=== PATIENT | male | born 1965 | race Two or more races ===

== ENCOUNTER 2017-07-23 22:24 | Emergency (ER) | payer MEDICAID, OTHER ==
[~2017-07-23] VITALS: Ht 182.9 cm; Wt 75.7 kg
[2017-07-23] MEDS ORDERED: LEVETIRACETAM (500MG) 500 MG/5 ML VIAL IV ONE (22:55)
[2017-07-23 23:00] LABS: BASOPHILS % (AUTO) 0.2 % (0.0-2.0); EOSINOPHILS % (AUTO) 3.1 % (0.0-6.0); HEMATOCRIT 37 % (39-51); HEMOGLOBIN 12.1 g/dL (13.5-17.5); LYMPHOCYTES # (AUTO) 2.5 /CMM (0.8-4.8); LYMPHOCYTES % (AUTO) 32.3 % (20.0-44.0); MEAN CORPUSCULAR HGB CONC 33 g/dl (31.0-36.0); MEAN CORPUSCULAR VOLUME 88 fL (80-96); MONOCYTES # (AUTO) 0.8 /CMM (0.1-1.30); MONOCYTES % (AUTO) 9.8 % (2.0-12.0); NEUTROPHILS # (AUTO) 4.3 /CMM (1.8-8.9); NEUTROPHILS % (AUTO) 54.6 % (43.0-81.0); PLATELET COUNT (AUTO) 246 /CMM (150-450); RDW COEFFICIENT OF VARIATION 14.1 (11.5-15.0); RED BLOOD CELL COUNT(AUTO) 4.14 MIL/uL (4.5-6.0); WHITE BLOOD COUNT (AUTO) 7.9 K/uL (4.3-11.0)
[2017-07-23] MEDS ORDERED: LEVETIRACETAM (500MG) 500 MG in IV NS 0.9% 100 ML IV ONE (23:00)
--- NOTE | 2017-07-23 23:01 | NUR ---
PT LEFT FOR CT VIA [facility]
[2017-07-23 23:08] LABS: CALCIUM, SERUM 9.3 mg/dL (8.5-10.1); CREATININE 1.7 mg/dL (0.6-1.3); POTASSIUM 3.8 mmol/L (3.5-5.1)
[2017-07-23 23:21] LABS: INR 0.96 (0.87-1.13)
[2017-07-23] MEDS ORDERED: METO-295 PO (23:44)
[2017-07-23] MEDS ORDERED: BISO5TAB2 PO (23:44)
[2017-07-23] MEDS ORDERED: METF-440 PO (23:44)
[2017-07-23] MEDS ORDERED: ATOR40TA PO (23:44)
[2017-07-23] MEDS ORDERED: ERGO400T7 PO (23:44)
[2017-07-23] MEDS ORDERED: LISI5TAB45 PO (23:44)
[2017-07-23] MEDS ORDERED: ASPI-1152 PO (23:44)
[2017-07-23] MEDS ORDERED: SPIR25TA6 PO (23:44)
[2017-07-24 01:20] VITALS: BP 107/69
== END 2017-07-24 01:21 | disposition home or self-care (01) ==
LOC: ER 22:27
DX: G40.909 Epilepsy, unspecified, not intractable, without status epilepticus (principal); N28.9 Disorder of kidney and ureter, unspecified; D64.9 Anemia, unspecified; E11.9 Type 2 diabetes mellitus without complications; E78.5 Hyperlipidemia, unspecified; G93.89 Other specified disorders of brain; I10 Essential (primary) hypertension; I25.10 Atherosclerotic heart disease of native coronary artery without angina pectoris; R79.1 Abnormal coagulation profile; Z79.82 Long term (current) use of aspirin; Z86.73 Personal history of transient ischemic attack (TIA), and cerebral infarction without residual deficits; Z95.1 Presence of aortocoronary bypass graft
CPT/HCPCS: 36415; 70450-TC; 71045-TC; 80048-TC; 82962-TC; 85025-TC; 85730-TC; A4606; J1953; J7030; Z7610

== ENCOUNTER 2018-02-12 12:40 | Emergency (ER) | payer MEDICAID ==
[~2018-02-12] VITALS: Ht 180.3 cm; Wt 75.7 kg
[~2018-02-12 12:40] MED LIST: ASPI-1152 PO; ATOR40TA PO; BISO5TAB2 PO; ERGO400T7 PO; LISI5TAB45 PO; METF-440 PO; METO-295 PO; SPIR25TA6 PO
--- NOTE | 2018-02-12 12:45 | NUR ---
PT BIBRA FROM HOME C/O SEIZURE. BUMP ON FOREHEAD. NO ORAL TRAUMA NOTED. CC=980 MG/DL IN THE FIELD PRIOR TO ARRIVAL. PT ON MONITOR IN BED 9. WILL CONTINUE TO MONITOR.
--- NOTE | 2018-02-12 12:46 | NUR ---
JS=654 MG/DL
--- NOTE | 2018-02-12 12:47 | NUR ---
TECH AT BEDSIDE FOR EKG
--- NOTE | 2018-02-12 12:50 | NUR ---
FAMILY AT BEDSIDE
[2018-02-12] MEDS ORDERED: LEVETIRACETAM (500MG) 500 MG in IV NS 0.9% 100 ML IV ONE (13:30)
--- NOTE | 2018-02-12 13:45 | NUR ---
PT TAKEN TO RADIOLOGY VIA [facility]
--- NOTE | 2018-02-12 18:11 | NUR ---
ADMIT TO [facility], [place] FOR RN REPORT [phone] ETA FOR BLS TRANSPORT 2000 HOURS.
--- NOTE | 2018-02-12 18:35 | NUR ---
Patient is resting comfortably in bed with eyes closed. Easily aroused. VSS. PT FAMILY AT BEDSIDE.
--- NOTE | 2018-02-12 19:29 | NUR ---
REPORT GIVEN TO CANELO LEIJA FOR [facility]
--- NOTE | 2018-02-12 20:22 | NUR ---
REPORT GIVEN TO LUCIANA LEMOS AT [place].
[2018-02-12 20:38] VITALS: BP 128/88
== END 2018-02-12 20:38 ==
LOC: ER 12:43
DX: S00.83XA Contusion of other part of head, initial encounter (principal); G40.909 Epilepsy, unspecified, not intractable, without status epilepticus; I25.2 Old myocardial infarction; I10 Essential (primary) hypertension; Z95.5 Presence of coronary angioplasty implant and graft; Z86.73 Personal history of transient ischemic attack (TIA), and cerebral infarction without residual deficits; Z79.82 Long term (current) use of aspirin; X58.XXXA Exposure to other specified factors, initial encounter; Y93.89 Activity, other specified; Y92.89 Other specified places as the place of occurrence of the external cause; Y99.8 Other external cause status
CPT/HCPCS: 70450; 82962; 96365; 99284; A4606; J1953; J7030; Z7610

== ENCOUNTER 2018-06-25 12:53 | Emergency (ER) | payer MEDICAID ==
[~2018-06-25] VITALS: Ht 182.9 cm; Wt 81.6 kg
[2018-06-25] MEDS ORDERED: IV NS 0.9% 500 ML BAG IV ONE (13:00)
--- NOTE | 2018-06-25 13:00 | NUR ---
MARTÍNEZ RA 89 FROM HOME SEIZURE "WAS SITTING DOWN- WITNESSED SEIZURE BY FAMILY, POST ICTAL WHEN WE CAME ON SCENE +ORAL TRAUMA BS 165" PATIENT AWAKE AND ALERT, STILL POSTICTAL, PLACED ON A MONITOR, SEIZURE PRECAUTION OBSERVED, WILL CONTINUE TO MONITOR.
[2018-06-25] MEDS ORDERED: LEVE500T20 PO (13:09)
[2018-06-25] MEDS ORDERED: LISI2.5T2 PO (13:09)
[2018-06-25 13:25] LABS: BASOPHILS % (AUTO) 0.5 % (0.0-2.0); EOSINOPHILS % (AUTO) 4.6 % (0.0-6.0); HEMATOCRIT 39 % (39-51); HEMOGLOBIN 12.5 g/dL (13.5-17.5); LYMPHOCYTES % (AUTO) 16.9 % (20.0-44.0); MEAN CORPUSCULAR HGB CONC 32 g/dl (31.0-36.0); MEAN CORPUSCULAR VOLUME 92 fL (80-96); MONOCYTES # (AUTO) 0.4 /CMM (0.1-1.30); MONOCYTES % (AUTO) 6.4 % (2.0-12.0); NEUTROPHILS # (AUTO) 4.2 /CMM (1.8-8.9); NEUTROPHILS % (AUTO) 71.6 % (43.0-81.0); PLATELET COUNT (AUTO) 252 /CMM (150-450); RED BLOOD CELL COUNT(AUTO) 4.17 MIL/uL (4.5-6.0); WHITE BLOOD COUNT (AUTO) 5.8 K/uL (4.3-11.0)
[2018-06-25 13:27] LABS: ALBUMIN 3.8 g/dL (3.4-5.0); BILIRUBIN,DIRECT 0.3 mg/dL (0.0-0.2); BILIRUBIN,TOTAL 1.6 mg/dL (0.2-1.0); CALCIUM, SERUM 8.2 mg/dL (8.5-10.1); CREATININE 1.3 mg/dL (0.6-1.3); POTASSIUM 4.4 mmol/L (3.5-5.1); TOTAL PROTEIN, SERUM 7.1 g/dL (6.4-8.2)
--- NOTE | 2018-06-25 13:50 | NUR ---
Piv removed, son at bedside, patient discharged to home in stable condition. Written and verbal after care instructions given. Patient verbalizes understanding of instruction.
[2018-06-25 13:51] VITALS: BP 125/72
== END 2018-06-25 13:52 | disposition home or self-care (01) ==
LOC: ER 12:54
DX: G40.909 Epilepsy, unspecified, not intractable, without status epilepticus (principal); I10 Essential (primary) hypertension; I25.2 Old myocardial infarction; Z79.82 Long term (current) use of aspirin; Z79.84 Long term (current) use of oral hypoglycemic drugs; Z79.899 Other long term (current) drug therapy; Z86.73 Personal history of transient ischemic attack (TIA), and cerebral infarction without residual deficits
CPT/HCPCS: 36415; 80048; 80076; 85025; 99283; J7040